=== PATIENT | female | born 1985 | race Caucasian/White ===

== ENCOUNTER 2018-10-04 07:23 | Outpatient (CLI) | payer OTHER | END 2018-10-04 08:08 | disposition home or self-care (01) | LOC: SONOGRAMA 07:23 | DX: R10.9 Unspecified abdominal pain (principal) ==

== ENCOUNTER 2018-10-09 09:39 | Outpatient (CLI) | payer OTHER | END 2018-10-09 17:00 | disposition home or self-care (01) | LOC: SONOGRAMA 09:39 | DX: N83.292 Other ovarian cyst, left side (principal); N83.291 Other ovarian cyst, right side ==